=== PATIENT | male | born 1980 | race Caucasian/White ===

== ENCOUNTER 2024-11-27 10:52 | Emergency (ER) | payer OTHER, SELFPAY ==
--- NOTE | ~2024-11-27 | CT_ITS ---
EXAMINATION: CT abd pelvis lumbar wo con DATE: 11/27/2024 13:25 INDICATION: Flank pain. TECHNIQUE: Computed tomography (CT) of the abdomen and pelvis and lumbar spine was performed without intravenous contrast. Automated exposure control and iterative reconstruction technique were employed . The dose-length product was 666.65 mGy-cm. COMPARISON: None FINDINGS: CT ABDOMEN AND PELVIS: The visualized portions of the lung bases demonstrate mild atelectasis. The he art size is normal. No pericardial effusion. There is diffuse hepatic steatosis. The gallbladder, spl een, pancreas, adrenal glands, and kidneys are normal. There is no urolithiasis. There are no dilated loops of bowel. The appendix is normal. There are no pathologically enlarged lymph nodes. There is n o free intraperitoneal fluid. There is an umbilical hernia containing fat. CT LUMBAR SPINE: There is 9 degrees levocurvature of thoracolumbar spine. There is mild chronic anter ior wedging of T12 and L1 vertebral bodies. There is mildly decreased disc height at L2-L3. The follo wing disc levels are specifically discussed: L1-L2: The disc does not extend beyond the endplate margin. There is mild bilateral facet joint osteo arthritis. There is no neural foraminal stenosis. There is no central canal stenosis. L2-L3: The disc is bulging. There is mild bilateral facet joint osteoarthritis. There is mild bilater al neural foraminal stenosis. There is mild central canal stenosis. L3-L4: The disc is bulging. There is mild bilateral facet joint osteoarthritis. There is mild bilater al neural foraminal stenosis. There is mild central canal stenosis. L4-L5: The disc is bulging. There is mild right and moderate left facet joint osteoarthritis. There i s mild right and moderate left neural foraminal stenosis. There is mild central canal stenosis. L5-S1: The disc is bulging. There is mild bilateral facet joint osteoarthritis. There is mild bilater al neural foraminal stenosis. There is mild central canal stenosis. IMPRESSION: 1. Umbilical hernia containing fat. 2. No urolithiasis. 3. Moderate left neural foraminal stenosis at L4-L5. Otherwise mild lumbar spondylosis. Reviewed, dictated and finalized at location A. TING FIXTURE INSTALLER IMPRESSION: 1. Umbilical hernia containing fat. 2. No urolithiasis. 3. Moderate left neural foraminal stenosis at L4-L5. Otherwise mild lumbar spon dylosis.
--- OUTSIDE RECORDS SUMMARY | 2024-11-27 10:55 | XMS_ITS | Clinical Summary ---
Author Organization [facility] Address [address] [place] [address] Care Team Providers Care Tax Senior Associate Name Role Phone Myron Cabrera MD Primary Care Provider [phone] [phone] Allergies No known active allergies Medications metroNIDAZOLE 0.75 % lotion apply by topical route 2 times every day a thin layer to the affected area(s) in the morning and evening 30 0 4 Active Additional Information Patient not taking.Reported on 12/10/2021 minocycline (DYNACIN) 100 mg tablet take 1 tablet by oral route every 12 hours 60 0 5 Active Additional Information Patient not taking.Reported on 12/10/2021 naproxen (NAPROSYN) 500 mg tablet Take 1 tablet (500 mg total) by mouth 2 (two) times a day as needed for pain (pain). 60 tablet 5 8 Active naproxen (NAPROSYN) 500 mg tablet Take 1 tablet (500 mg total) by mouth 2 (two) times a day as needed for pain (pain) 60 tablet 2 Active tiZANidine (ZANAFLEX) 4 mg tablet Take 1 tablet (4 mg total) by mouth every 6 (six) hours as needed for muscle spasms 30 tablet 1 2 Active traMADoL (ULTRAM) 50 mg tablet Take 1 tablet (50 mg total) by mouth every 6 (six) hours as needed for pain 20 tablet 2 Active oseltamivir (TAMIFLU) 75 mg capsule Take 1 capsule (75 mg total) by mouth daily 10 capsule 2 Active Active Problems Problem Noted Date Diagnosed Date Rosacea 08/01/2014 Overview (01/08/2017): [facility] Immunizations Immunization Administration Dates Next Due Influenza, Quadrivalent, Spl it, Preservative Free, Intramuscular 06/26/2020,07/12/2018,07/16/2015 Influenza, Split 07/23/2010 Influenza, Trivalent, IM (MDV) 06/26/2014 Influenza, Trivalent, Preser vative Free, Intramuscular 07/05/2017,10/16/2016,07/15/2015 Influenza, Unspecified 12/10/2021(Deferr ed: Patient Refused),10/05/2020(Deferred: Patient Refused) Medical History Medical History Date Comments Hx Other Medical 2009 vasectomy Family History Medical History Relation Name Comments Hypertension Mother 2 Hypertension; Relation Name Status Comments Mother 1 Alive Mother 2 Social History Tobacco Use Types Packs/Day Years Used Date Smoking Tobacco: Never Alcohol Use Standard Drinks/Week Comments Yes 0 (1 standard drink = 0.6 oz pur e alcohol) PHQ-2 Answer Date Recorded PHQ-2 Total Score (If total score is 3 or more points, staff should administer the PHQ-9) 0 12/10/2021 Personal Safety Answer Date Recorded Getting School Help Needed Not on file 12/18 Sex and Gender Information Value Date Recorded Sex Assigned at Not on file Legal Sex Male 7:43 PM DESK CLERKS SUPERVISOR Gender Identity Not on file Sexual Orientation Not on file Obstetrics History Last Filed Vital Signs Vital Sign Reading Time Taken Comments Blood Pressure 132/84 12/10/2021 2:02 PM DESK CLERKS SUPERVISOR Pulse 80 12/10/2021 2:02 PM DESK CLERKS SUPERVISOR Temperature 36.8 C (98.2 F) 12/10/2021 2:02 PM DESK CLERKS SUPERVISOR Respiratory Rate - - Oxygen Saturation 98% 12/10/2021 2:02 PM DESK CLERKS SUPERVISOR Inhaled Oxygen Concentration - - Weight 100.2 kg (220 lb 12.8 oz) 12/10/2021 2:02 PM DESK CLERKS SUPERVISOR Height 177.8 cm (5' 10 ) 12/10/2021 2:02 PM DESK CLERKS SUPERVISOR Body Mass Index 31.68 12/10/2021 2:02 PM DESK CLERKS SUPERVISOR Plan of Treatment Health Maintenance Due Date Last Done Comments Colon Cancer Screening-Colonoscopy 1979 Hepatitis C Screening 1979 DTaP/Tdap/Td Vaccine (1 - Tdap) 1990 Hepatitis B Screening 1997 Regular Well Visit/Exam 18-64 1997 Depression Screening 12/10/2022 12/10/2021 Influenza Vaccine (#1) 2024 0, 07/12/2018, 07/05/2017, Additional history exists HPV Vaccines Aged Out No longer eligi ble based on patient's age to complete this topic Pneumococcal vaccine <65 Aged Out No longer eligible based on patient's age to complete this topic Insurance Care Teams Tax Senior Associate Relationship Specialty Start Date End Date Myron Cabrera MD [address] [place] [address] PCP - General 06/01/12
--- OUTSIDE RECORDS SUMMARY | 2024-11-27 10:55 | XMS_ITS ---
Author Organization [facility] Address [address] [place] [address] Care Team Providers Care Refurbish Technician Name Role Phone Myron Cabrera MD Primary Care Provider [phone] [phone] Transplant Episode Kidney Potential Donor [facility] ([place], [place]) - [facility] Referred on 07/05/2024 Marked as Deferred on 07/05/2024 Reason: Pending Return of Packet Kidney CoordinatorAco Alexandra Robertson MD Fax: N/A Email: N/A Care Team Name Role Phone Fax Email Aco Alexandra Robertson MD Kidney Coordinator N/A N/A Events Pre-Donation Referred: 07/05/2024
--- OUTSIDE RECORDS SUMMARY | 2024-11-27 10:55 | XMS_ITS | Referral Summary ---
Author Organization [facility] Address [address] [place] [address] Care Team Providers Care Extension Service Agent Name Role Phone Myron Cabrera MD Primary Care Provider [phone] [phone] Allergies No known active allergies Medications metroNIDAZOLE [...] Unspecified 12/10/2021(Deferr ed: Patient Refused),10/05/2020(Deferred: Patient Refused) Social History Tobacco Use Types Packs/Day Years [...] on file Legal Sex Male 7:43 PM DATA MIGRATION LEAD Gender Identity Not on file Sexual Orientation Not on file Last Filed Vital Signs Vital Sign Reading Time Taken Comments Blood Pressure 132/84 12/10/2021 2:02 PM DATA MIGRATION LEAD Pulse 80 12/10/2021 2:02 PM DATA MIGRATION LEAD Temperature 36.8 C (98.2 F) 12/10/2021 2:02 PM DATA MIGRATION LEAD Respiratory Rate - - Oxygen Saturation 98% 12/10/2021 2:02 PM DATA MIGRATION LEAD Inhaled Oxygen Concentration - - Weight 100.2 kg (220 lb 12.8 oz) 12/10/2021 2:02 PM DATA MIGRATION LEAD Height 177.8 cm (5' 10 ) 12/10/2021 2:02 PM DATA MIGRATION LEAD Body Mass Index 31.68 12/10/2021 2:02 PM DATA MIGRATION LEAD Plan of Treatment Not on file Insurance [facility] CHOICE PLUS Care Teams Extension Service Agent Relationship Specialty Start Date End Date Myron Cabrera MD [address] [place] [address] PCP - General 06/01/12
[2024-11-27 10:59] VITALS: BP 163/99; PULSE 110; RESP 20; TEMP 36.7; O2SAT 96
--- NOTE | 2024-11-27 11:12 | PC.NURSE ---
Pt. reports 10/10 bilateral flank pain that radiates to his lower abdomen. Pain worse on the right side. Denies pain with urination or hematuria. Denies fever. Pain is worse with movement.
--- NOTE | 2024-11-27 11:13 | ECG_ITS ---
Test Date: 2024-11-27 11:41:53 Measurements Intervals [place] Rate: 99 P: 51 TN: 143 QRS: 11 QRSD: 90 T: 7 QT: 327 QTc: 421 Interpretive Statements SINUS RHYTHM POSSIBLE LEFT ATRIAL ENLARGEMENT BORDERLINE ST-T WAVE ABNORMALITY- INFERIOR LEADS BORDERLINE ECG No previous ECG available for comparison Electronically Signed On 11-27-2024 16:52:09 REEL BLADE BENDER FURNACE TENDER by Melquiades Rosas D.O.
[2024-11-27 11:14] VITALS: BP 176/121; PULSE 106; RESP 16; O2SAT 96
[2024-11-27 11:22] LABS: Basophils Absolute Auto 0.1 K/mm3 (0.0-0.1); Basophils Percent Auto 0.3 % (0.2-1.2); Eosinophils Percent Auto 0.1 % (0-4.4); Hematocrit 46.8 % (42.0-52.0); Hemoglobin 16.4 g/dL (14.0-18.0); Immature Granulocyte Absolute 0.07 K/mm3 (0.00-0.031); Immature Granulocyte Percent A 0.4 % (0-0.5); Lymphocytes Absolute Auto 0.72 K/mm3 (0.9-3.2); Lymphocytes Percent Auto 4.5 % (18.3-44.2); Mean Corpuscular Hemoglobin 32.7 pg (26-34); Mean Corpuscular Volume 93.2 fl (80-100); Mean Platelet Volume 9.2 fl (7.4-10.4); Monocytes Absolute Auto 1.2 K/mm3 (0.1-0.6); Monocytes Percent Auto 7.6 % (2.6-8.5); Neutrophils Absolute Auto 13.9 K/mm3 (1.3-6.7); Neutrophils Percent Auto 87.1 % (45.5-73.1); Platelet Count Result 201 k/mm3 (150-375); Red Blood Count 5.02 M/mm3 (4.6-6.20); Red Cell Distribution Width 11.9 % (11.5-14.5)
--- OUTSIDE RECORDS SUMMARY | 2024-11-27 11:26 | XMS_ITS | Referral Summary ---
Author Organization [facility] Address [address] [place] [address] Care Team Providers Care Cone Worker Name Role Phone Myron Cabrera MD Primary Care Provider [phone] [phone] Allergies No known active allergies Medications metroNIDAZOLE [...] on file Legal Sex Male 7:43 PM TOWEL SORTER Gender Identity Not on file Sexual Orientation Not on file Last Filed Vital Signs Vital Sign Reading Time Taken Comments Blood Pressure 132/84 12/10/2021 2:02 PM TOWEL SORTER Pulse 80 12/10/2021 2:02 PM TOWEL SORTER Temperature 36.8 C (98.2 F) 12/10/2021 2:02 PM TOWEL SORTER Respiratory Rate - - Oxygen Saturation 98% 12/10/2021 2:02 PM TOWEL SORTER Inhaled Oxygen Concentration - - Weight 100.2 kg (220 lb 12.8 oz) 12/10/2021 2:02 PM TOWEL SORTER Height 177.8 cm (5' 10 ) 12/10/2021 2:02 PM TOWEL SORTER Body Mass Index 31.68 12/10/2021 2:02 PM TOWEL SORTER Plan of Treatment Not on file Insurance [facility] CHOICE PLUS [facility] H[facility]/PPO Address: [facility] [id number] [place], [place] [id number] Care Teams Cone Worker Relationship Specialty Start Date End Date Myron Cabrera MD [address] [place] [address] PCP - General 06/01/12
--- OUTSIDE RECORDS SUMMARY | 2024-11-27 11:26 | XMS_ITS ---
Author Organization [facility] Address [address] [place] [address] Care Team Providers Care Traffic Or System Dispatcher Name Role Phone Myron Cabrera MD Primary Care Provider [phone] [phone] Transplant Episode Kidney Potential Donor [facility] ([place], [place]) - [facility] Referred on 07/05/2024 Marked as Deferred on 07/05/2024 Reason: Pending Return of Packet Kidney CoordinatorAco Alexandra Robertson MD Fax: N/A Email: N/A Care Team Name Role Phone Fax Email Aco Alexandra Robertson MD Kidney Coordinator [phone] N/A N/A Events Pre-Donation Referred: 07/05/2024
--- OUTSIDE RECORDS SUMMARY | 2024-11-27 11:26 | XMS_ITS | Clinical Summary ---
Author Organization [facility] Address [address] [place] [address] Care Team Providers Care Family And Consumer Education Teacher Name Role Phone Myron Cabrera MD Primary Care Provider [phone] [phone] Allergies No known active allergies Medications metroNIDAZOLE [...] on file Legal Sex Male 7:43 PM PHYS THER Gender Identity Not on file Sexual Orientation Not on file Obstetrics History Last Filed Vital Signs Vital Sign Reading Time Taken Comments Blood Pressure 132/84 12/10/2021 2:02 PM PHYS THER Pulse 80 12/10/2021 2:02 PM PHYS THER Temperature 36.8 C (98.2 F) 12/10/2021 2:02 PM PHYS THER Respiratory Rate - - Oxygen Saturation 98% 12/10/2021 2:02 PM PHYS THER Inhaled Oxygen Concentration - - Weight 100.2 kg (220 lb 12.8 oz) 12/10/2021 2:02 PM PHYS THER Height 177.8 cm (5' 10 ) 12/10/2021 2:02 PM PHYS THER Body Mass Index 31.68 12/10/2021 2:02 PM PHYS THER Plan of Treatment Health Maintenance Due Date [...] to complete this topic Insurance Care Teams Family And Consumer Education Teacher Relationship Specialty Start Date End Date Myron Cabrera MD [address] [place] [address] PCP - General 06/01/12
[2024-11-27 11:32] LABS: Alanine Aminotransferase 23 U/L (6-50); Albumin Level 4.5 g/dL (3.5-5.1); Alkaline Phosphatase 82 U/L (38-126); Anion Gap 9 mmol/L (4-12); Aspartate Amino Transferase 21 U/L (17-59); Bilirubin,Total 2.1 mg/dL (0.2-1.3); Blood Urea Nitrogen 8 mg/dL (9-20); Calcium 9.6 mg/dL (8.4-10.2); Carbon Dioxide 29 mmol/L (22-30); Chloride 98 mmol/L (98-107); Estimated CRCL calculation 116 ml/min; Estimated Glomerular Filt Rate > 60; Glucose 101 mg/dL (65-110); Potassium 3.9 mmol/L (3.4-5.0); Sodium 136 mmol/L (137-145)
[2024-11-27 11:36] LABS: Prothrombin Time 13.3 Seconds (11.1-14.7)
[2024-11-27 11:37] LABS: Partial Thromboplastin Time 31.4 Seconds (22.3-36.8)
[2024-11-27 12:45] LABS: Add Urine Microscopic? YES; Appearance Urine Clear (Clear); Bacteria Urine None Seen /hpf; Bilirubin Urine Negative (Negative); Blood Urine Trace (Negative); Color Urine Yellow (Yellow); Glucose Urine UA Negative (Negative); Ketones Urine 1+ mg/dL (Negative); Leukocyte Esterase Ur Negative LEU/UL (Negative); Mucus Urine Present /lpf; Need Manual Microscopic Reviewed; Nitrate Urine Negative (Negative); Protein Urine 2+ mg/dL (Negative); RBC Urine 0-2 /hpf (0-2); Specific Grav Ur 1.014 (1.001-1.035); Squamous Epithelial Cell Urine None Seen /hpf (Few); WBC Urine 0-5 /hpf (0-3)
[2024-11-27 12:49] VITALS: BP 160/121; PULSE 102; RESP 16; O2SAT 95
[2024-11-27] MEDS: HYDROmorphone HCL INJ (*CRX) 1 MG/ML SYR IV PUSH (12:50)
--- NOTE | 2024-11-27 13:01 | ED.GENADULT ---
HPI - General Adult General Chief complaint: Back Pain/Injury Stated complaint: bilat flank pain Time Seen by Provider: 11/27/24 11:06 History of Present Illness HPI narrative: 44-year-old male presents to the emergency department for evaluation for right flank pain that radiates to both sides abdomen into his right lower quadrant. Patient states the symptoms started acutely approximately 9:30 p.m.. Patient reports he had been in a basketball game and was jumping up and down while cheering but had no pain at that time. Patient states after he got home he started having the right flank pain. Patient states the pain has persisted since that time. Patient denies any associated numbness or weakness. Patient denies any fevers. Patient has no prior history of kidney stones Related Data Allergies Allergy/AdvReac Type Severity Reaction Status Date / Time No Known Allergies Allergy Unknown Verified 11/27/24 11:14 Review of Systems Review of Systems: All systems reviewed & are unremarkable except as noted in HPI and below Exam Narrative: APPEARANCE: Uncomfortable appearing, improved with IV pain meds HEAD: normocephalic, atraumatic. EYES: PERRLA/EOMI, conjunctivae clear. NOSE: Normal no drainage EARS:TMS clear with good light reflex. THROAT: Pharynx clear, no exudate. NECK: Supple. No adenopathy, no masses. RESPIRATORY: Airway patent, respirations nonlabored. Clear to auscultation bilaterally, no rales, rhonchi, wheezing. CARDIOVASCULAR: Regular rate and rhythm without murmurs rubs or gallops. ABDOMINAL: Right CVA tenderness to palpation, no right lower quadrant tenderness to palpation, no suprapubic tenderness MUSCULOSKELETAL: Moves all extremities. Strength/ROM intact, No edema, No calf tenderness. NEURO: Alert. Cranial nerves II through XII intact. Grossly intact SKIN: Warm, dry. Normal Color Course Vital Signs Vital signs: Vital Signs Temperature 98.0 F 11/27/24 10:59 Pulse Rate 110 H 11/27/24 10:59 Respiratory Rate 20 11/27/24 10:59 Blood Pressure 163/99 H 11/27/24 10:59 Pulse Oximetry 96 11/27/24 10:59 Oxygen Delivery Room Air 11/27/24 10:59 Temperature 98.0 F 11/27/24 10:59 Pulse Rate 100 11/27/24 15:30 Respiratory Rate 16 11/27/24 15:30 Blood Pressure 165/110 H 11/27/24 15:30 Pulse Oximetry 96 11/27/24 15:30 Oxygen Delivery Room Air 11/27/24 10:[address] [facility] Narrative Medical decision making narrative: 44-year-old male presents to the emergency department for evaluation for right-sided back pain. Patient reports he has no numbness or weakness. Patient does complain of right-sided lower back pain does have some right CVA tenderness to palpation, patient does have elevated leukocytosis of 16 and hemoglobin of 16.4. Patient's INR is 1.0. No acute abnormalities on the patient's CMP UA was positive for ketones but negative for infection negative for blood. CT scan lumbar an abdomen was ordered and showed no evidence of ureterolithiasis but does have moderate foraminal stenosis. On bladder scan patient had no retained urine. Patient is neurologically intact. Patient's pain is worsened with movement. Patient states pain did start after he was jumping and cheering for a game so I do have a higher suspicion for muscular injury. Differential Diagnosis Differential Diagnosis: Diskitis, colitis, diverticulitis, UTI, ureterolithiasis, muscular strain Vital Signs Vital Signs: Vital Signs Temperature 98.0 F 11/27/24 10:59 Pulse Rate 110 H 11/27/24 10:59 Respiratory Rate 20 11/27/24 10:59 Blood Pressure 163/99 H 11/27/24 10:59 Pulse Oximetry 96 11/27/24 10:59 Oxygen Delivery Room Air 11/27/24 10:59 Temperature 98.0 F 11/27/24 10:59 Pulse Rate 100 11/27/24 15:30 Respiratory Rate 16 11/27/24 15:30 Blood Pressure 165/110 H 11/27/24 15:30 Pulse Oximetry 96 11/27/24 15:30 Oxygen Delivery Room Air 11/27/24 10:59 Lab Data Lab results reviewed: Yes I reviewed the patient's lab results. 11/27/24 11:17 11/27/24 11:17 Labs: Lab Results 11/27/24 11/27/24 Range/Units 11:17 11:44 WBC 16.0 H (4.5-10.0) K/mm3 RBC 5.02 (4.6-6.20) M/mm3 Hgb 16.4 (14.0-18.0) g/dL Hct 46.8 (42.0-52.0) % MCV 93.2 (80-100) fl MCH 32.7 (26-34) pg MCHC 35.0 (32-36) g/dl RDW 11.9 (11.5-14.5) % Plt Count 201 (150-375) k/mm3 MPV 9.2 (7.4-10.4) fl Immature Gran % (Auto) 0.4 (0-0.5) % Neut % (Auto) 87.1 H (45.5-73.1) % Lymph % (Auto) 4.5 L (18.3-44.2) % [place] % (Auto) 7.6 (2.6-8.5) % Eos % (Auto) 0.1 (0-4.4) % Baso % (Auto) 0.3 (0.2-1.2) % Lymph # (Auto) 0.72 L (0.9-3.2) K/mm3 [place] # (Auto) 1.2 H (0.1-0.6) K/mm3 Eos # (Auto) 0.0 (0-0.3) K/mm3 Baso # (Auto) 0.1 (0.0-0.1) K/mm3 Abs Immat Gran (auto) 0.07 H (0.00-0.031) K/mm3 Absolute Neuts (auto) 13.9 H (1.3-6.7) K/mm3 Absolute Nucleated RBC 0.000 (0.0-0.012) K/mm3 Nucleated RBC % 0.0 (0.0-0.2) % PT 13.3 (11.1-14.7) Seconds INR 1.0 APTT 31.4 (22.3-36.8) Seconds Sodium 136 L (137-145) mmol/L Potassium 3.9 (3.4-5.0) mmol/L Chloride 98 (98-107) mmol/L Carbon Dioxide 29 (22-30) mmol/L Anion Gap 9 (4-12) mmol/L BUN 8 L (9-20) mg/dL Creatinine 0.74 (0.7-1.3) mg/dL Estim Creat Clear Calc 116 ml/min Estimated GFR > 60 (59 - ) Glucose 101 (65-110) mg/dL Calcium 9.6 (8.4-10.2) mg/dL Total Bilirubin 2.1 H (0.2-1.3) mg/dL AST 21 (17-59) U/L ALT 23 (6-50) U/L Alkaline Phosphatase 82 (38-126) U/L Total Protein 8.0 (6.3-8.2) g/dL Albumin 4.5 (3.5-5.1) g/dL Urine Color Yellow (Yellow) Urine Appearance Clear (Clear) Urine pH 6.0 (5.0-9.0) Ur Specific [place] 1.014 (1.001-1.035) Urine Protein 2+ H (Negative) mg/dL Urine Glucose (UA) Negative (Negative) mg/dL Urine Ketones 1+ H (Negative) mg/dL Ur Blood (Man) Trace (Negative) Urine Nitrate Negative (Negative) Urine Bilirubin Negative (Negative) Urine Urobilinogen 1.0 (<2.0) mg/dL Add Ur Microanalysis Reviewed Leukocyte Esterase Rfl Negative (Negative) MARLENE/UL Urine RBC 0-2 (0-2) /hpf Urine WBC 0-5 (0-3) /hpf Ur Squamous Epith Cells None seen (Few) /hpf Urine Bacteria None seen /hpf Urine Casts 6-10 Urine Mucus Present /lpf Imaging Data Radiologist's impression: Impressions Miscellaneous CT Procedure 11/27/24 13:50 IMPRESSION: 1. Umbilical hernia containing fat. 2. No urolithiasis. 3. Moderate left neural foraminal stenosis at L4-L5. Otherwise mild lumbar spondylosis. Discharge Plan Discharge Clinical Impression: Back pain Patient Disposition: Home, Self-Care Condition: Stable Instructions: Antibiotic Form, Acute Low Back Pain (ED) Additional Instructions: Ibuprofen for pain control. Flexeril for muscle spasm. [place] as needed for additional pain control. Have close follow-up with your primary care physician. If you have any worsening symptoms including numbness, weakness, high fever, uncontrolled pain then please call or return to the emergency department. Patient Language: Ukrainian Prescriptions: New cyclobenzaprine 10 mg tablet 10 mg PO BID PRN (Reason: muscle spasm) Qty: 14 0RF hydrocodone-acetaminophen 5-325 mg tablet 1 tablet PO Q12H PRN (Reason: pain) Qty: 14 0RF Follow-up/Referrals: Harms,Myron Ren M.D. [Primary Care Provider] -
--- NOTE | 2024-11-27 13:51 | PC.NURSE ---
Pt. sleeping. Breathing equal and unlabored. VSS on RA.
[2024-11-27 13:52] VITALS: BP 146/102; PULSE 102; RESP 16; O2SAT 94
[2024-11-27] MEDS: CYCLOBENZAPRINE HCL 10 MG TABLET PO (14:19)
[2024-11-27] MEDS: KETOROLAC 15 MG/ML VIAL (*BKC) IV PUSH (14:19)
[2024-11-27 15:30] VITALS: BP 165/110; PULSE 100; RESP 16; O2SAT 96
[2024-11-27] MEDS: HYDROcodone/acetaminophen (*CRX) 7.5-325 MG TABLET 1 TAB PO (15:32)
== END 2024-11-27 15:45 | disposition home or self-care (01) ==
PROVIDERS: Emergency Provider Emergency Medicine; PCP Family Medicine
DX: M54.50 Low back pain, unspecified (principal); M47.816 Spondylosis without myelopathy or radiculopathy, lumbar region; M48.061 Spinal stenosis, lumbar region without neurogenic claudication; K42.9 Umbilical hernia without obstruction or gangrene; R94.31 Abnormal electrocardiogram [ECG] [EKG]
CPT/HCPCS: 36415; 72131; 74176; 80053; 81001; 85025; 85610; 85730; 93005; 96374; 96375; 99284; A9270; J1171; J1885